=== PATIENT | female | born 1945 | race Caucasian/White ===

== ENCOUNTER 2019-07-01 08:05 | Day surgery (SDC) | payer MEDICARE, OTHER ==
[~2019-07-01 08:05] MED LIST: ALBIPROI INH; ALBU90OI6 INH; ALEN70 PO; AMIT10; AMIT50; AMOX500 PO; ASPI81CH; Aspir 8181 MG PO; Aspir-Trin325 MG; BENZ100A PO; Bactrim Ds Tab1 EACH PO; Bactroban22 GM TOP; CALCAVITDA PO; CARI350 PO; CEPH500 PO; CHOL10002 PO; CLOP75; Cleocin HCl150 MG PO; Clindamycin HC150 MG PO; Crutch1 EACH MISC; DULO60; FLUO20; FLUO20 PO; FURO20; FURO20 PO; FURO40 PO; GABA100; GABA300; GABA300 PO; GABA800 PO; HYDACE5; HYDACE5 PO; HYDMOR2 PO; IBUP600 PO; IBUP800; IBUP800 PO; IPRA.06NI INH; LAMICTAL XR200 MG PO; LAMO100 PO; LEVFLO500 PO; LISI5 PO; LOVA20 PO; MECL25 PO; META400; METO25ER PO; NAPR550 PO; Nitrostat0.4 MG SL; Norco 5-325 Ta1 EACH PO; OMEP20ER PO; OXYACE5T PO; OXYACE7.5T PO; PERCOCET 10/325MG PO; PHENY100ER; PHENY100ER PO; POTASSIUM; POTASSIUM GLUCONATE; POTCHL10ER; POTCHL10ER PO; POTCIT5; POTCIT5 PO; PRODEXEL PO; PROZAC20 MG PO; Percocet 5-3251 EACH PO; Prinivil10 MG PO; QUININE SULFAT324 MG PO; RXNEOPOLHC AS; SILSUL1TC TOP; SULTRIDS PO; TIZA4; VIT1CAPS12; ZADITOR5 ML; Zantac150 MG PO; Zithromax250 MG PO; Zofran Odt8 MG SL; [UNRECOGNIZED DRUG - SUPPLY] MC
--- NOTE | 2019-07-01 10:26 | NUR ---
PT INTO STEP VIA NASIR POST MYELOGRAM CERVICLE. PT AWAKE/ALERT/ORIENTED X4. HOB ELEVATED TO APPROX 30 DEGREES PER ORDER. BASELINE NEURO CHECK COMPLETED. STRENGTH BUE EQUAL. STRENGTH TO BLE EQUAL. DENIES NUMBNESS/TINGLING THAT IS ABNORMAL FROM PREPROCEDURE. BANDAID TO LOWER BACK CDI. WILL CONTINUE TO MONITOR AND DOCUMENT CHANGES FROM BASELINE.
--- NOTE | 2019-07-01 12:00 | NUR ---
Patient States Post-Procedure ride home has been arranged. Patient vitals signs stable and neuro stable. Discharged via wheelchair to private car for ride home.
== END 2019-07-01 12:00 | disposition home or self-care (01) ==
LOC: RAD 08:05
DX: M50.11 Cervical disc disorder with radiculopathy, high cervical region (principal); M47.22 Other spondylosis with radiculopathy, cervical region; E78.5 Hyperlipidemia, unspecified; J44.9 Chronic obstructive pulmonary disease, unspecified; F32.9 Major depressive disorder, single episode, unspecified; Z88.5 Allergy status to narcotic agent; Z88.8 Allergy status to other drugs, medicaments and biological substances
CPT/HCPCS: 62302; 72126; Q9966

== ENCOUNTER 2019-12-10 12:50 | Day surgery (SDC) | payer MEDICARE, OTHER ==
--- NOTE | 2019-12-10 15:07 | NUR ---
SPOKE WITH DR. QURESHI VIA PHONE AND STATED THE PT WAS RECOVERING WELL. DR. QURESHI STATED THE PT COULD BE DISHCHARGED HOME AT THIS TIME.
== END 2019-12-10 22:35 | disposition home or self-care (01) ==
LOC: RAD 12:50
DX: M54.14 Radiculopathy, thoracic region (principal); M54.5 Low back pain; G89.29 Other chronic pain; M54.2 Cervicalgia; M79.669 Pain in unspecified lower leg; R32 Unspecified urinary incontinence; K59.00 Constipation, unspecified; I65.29 Occlusion and stenosis of unspecified carotid artery; M79.7 Fibromyalgia; E78.5 Hyperlipidemia, unspecified; I10 Essential (primary) hypertension; F17.200 Nicotine dependence, unspecified, uncomplicated; Z79.82 Long term (current) use of aspirin; Z86.73 Personal history of transient ischemic attack (TIA), and cerebral infarction without residual deficits; Z91.81 History of falling
CPT/HCPCS: 62303; 72129; Q9966

== ENCOUNTER 2020-01-01 15:01 | Inpatient (IN) | payer OTHER, MEDICARE ==
[~2020-01-01] VITALS: Ht 165.1 cm; Wt 73.4 kg
[~2020-01-01 15:01] MED LIST changes: -METO25ER PO; -VIT1CAPS12
[2020-01-01] MEDS ORDERED: CYCL10 PO (15:22)
[2020-01-01] MEDS ORDERED: LOVA20 PO (15:22)
[2020-01-01] MEDS ORDERED: METO25 PO (15:23)
[2020-01-01 15:49] LABS: BASOPHILS ABSOLUTE AUTO 0.05 K/mm3 (0.00-0.23); BASOPHILS PERCENT AUTO 1 % (0-2); EOSINOPHILS ABSOLUTE AUTO 0.04 K/mm3 (0.00-0.68); EOSINOPHILS PERCENT AUTO 1 % (0-6); Hematocrit 42.6 % (33.0-51.0); Hemoglobin 14.3 g/dL (11.5-16.0); IMMATURE GRAN ABSOLUTE AUTO 0.01 K/mm3 (0.00-0.10); IMMATURE GRAN PERCENT AUTO 0 % (0-1); LYMPHOCYTES ABSOLUTE AUTO 3.56 K/mm3 (0.84-5.20); LYMPHOCYTES PERCENT AUTO 44 % (21-46); MONOCYTES ABSOLUTE AUTO 0.65 K/mm3 (0.16-1.47); MONOCYTES PERCENT AUTO 8 % (4-13); Mean Corpuscular HGB 30.7 pg (26.0-34.0); Mean Corpuscular HGB Conc 33.6 g/dL (31.5-36.5); Mean Corpuscular Volume 91 fL (80-100); Mean Platelet Volume 10.4 fL (9.1-12.4); NEUTROPHILS PERCENT AUTO 46 % (41-73); Platelet Count 266 K/mm3 (150-400); RDW Coefficient Variation 12.9 % (11.7-14.2); RDW Standard Deviation 43.5 fL (35.1-46.3); Red Blood Cell Count 4.66 M/mm3 (3.80-5.20); White Blood Cell Count 8.01 K/mm3 (4.00-11.30)
[2020-01-01 15:59] LABS: Alanine Aminotransfer (ALT/SGP 20 U/L (12-78); Albumin, Blood 3.9 g/dL (3.4-5.0); Albumin/Globulin Ratio 1.2 (0.8-1.8); Alk Phos 78 U/L (50-136); Anion Gap 8 mmol/L (6-16); Aspartate Aminotrans (AST/SGOT 14 U/L (12-37); Bilirubin, Total 0.4 mg/dL (0.1-1.0); Blood Urea Nitrogen 19 mg/dL (8-24); Bun/Creatinine Ratio 25.1 (12.0-20.0); CO2, Blood 26 mmol/L (21-32); Calcium, Blood 9.3 mg/dL (8.5-10.1); Chloride, Blood 105 mmol/L (98-108); Creatinine, Blood 0.76 mg/dL (0.40-1.00); Globulin, Blood 3.3 g/dL (2.2-4.0); Glomerular Filtration Rate >60 (60-); Glucose, Blood 116 mg/dL (70-99); Potassium, Blood 3.9 mmol/L (3.5-5.5); Sodium, Blood 139 mmol/L (136-145); Total Protein, Blood 7.2 g/dL (6.4-8.2)
[2020-01-01] MEDS ORDERED: ASPIR 8181 M1 PO (16:39)
[2020-01-01] MEDS ORDERED: FURO20 PO (16:41)
[2020-01-01] MEDS ORDERED: MULTI VITAMIN1 EACH PO (16:42)
--- NOTE | 2020-01-01 20:54 | NUR ---
RECOVERY ASSESSMENT PT ARRIVED TO ICU FOR RECOVERY WITH RECOVERY NURSE AND DR MARTINEZ. BED SIDE REPORT WAS RECIEVED. PT IS STABLE AT THIS TIME. SHE WAKES EASILY TO VERBAL STIMULI. SHE STATES SHE IS HAVING SOME BACK PAIN, PT HAS A LONG HISTORY OF BACK SURGERIES. PT WAS PLACED ON 2L N/C TO KEEP SATS OVER 92%. NO SOB NOTED AT THIS TIME. PT HAS TWO PERIPHERAL IV'S TO BOTH ARMS PATENT. 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 ELEVATED STUMP ON PILLOW FOR COMFORT. CALL LIGHT REVIEWED WITH PT. WILL CON'T TO MONITOR AND KEEP PT SAFE.
--- NOTE | 2020-01-01 21:50 | NUR ---
TRANSFER TO SURGICAL REPORT GIVEN TO [facility] SURGICAL FLOOR RN. PT IS STABLE UPON TRANSFER. PT DENIES ANY PAIN TO LEG, STATES SHE JUST HAS BACK PAIN AND WILL NEED TO SIT UP. REMOVED PT'S OXYGEN FOR TRANSFER R/T COPD SATS WERE 98% WITH NO SOB NOTED. PT'S IV'S SL UPON TRANSFER. NO S/S OF DISTRESS.
--- NOTE | 2020-01-02 05:35 | NUR ---
SHIFT SUMMARY POD#1. AAOX4. DISCOMFORT CONTROLLED WITH 2 PAIN PILLS Q4H. NO NAUSEA/EMESIS. STUMP SOCK TO LLE WITH SMALL AMOUNT SS DRAINAGE, NEW CHUCKS PLACED UNDER LLE AT 0430 TO ASSESS NEW DRAINAGE. PT RESTING WELL THIS AM. GOOD PO INTAKE. PT DENIES NEED TO URINATE SINCE ARRIVAL TO FLOOR, CONTINUE TO ENCOURAGE UPON PT'S AWAKENING THIS AM. PT ORIENTED TO ROOM + CALL LIGHT USE.
--- NOTE | 2020-01-02 18:08 | NUR ---
SHIFT SUMMARY PATIENT STATES PAIN TOLERABLE WITH PO PAIN MEDS. NO FURTHER SHADOWING OF STUMP SOCK NOTED. DR FIGUEROA IN TO SEE TODAY. HOME MED ORDERS OBTAINED. PATIENT UP TO BSC WITH 1 PERSON ASSIST. PATIENT PLEASANT AND DISPLAYING POSITIVE ATTITUDE RE: JIMMY. TAKING PO. VOIDING. POSSIBLE D/C HOME TOMORROW.
--- NOTE | 2020-01-03 04:10 | NUR ---
SHIFT SUMMARY L BKA, POD1, A/O, VSS, TOLERATING PO, VOIDING WELL, TRANSFERS INDEPENDENTLY W/ 1 PERSON STANDBY ASSIST PER PT REQUEST FOR INDEPENDENCE, PAIN WELL CONTROLLED PER EMAR. MODERATE DRAINAGE IN LIMB SOCK, REINFORCED W/ ADDITIONAL BANDAGES, DR FERGUSON TO PERFORM FIRST DRESSING CHANGE DURING DAY SHIFT. WILL CONTINUE TO MONITOR AND REPORT TO ONCOMING DAY RN.
--- NOTE | 2020-01-03 10:42 | NUR ---
PT OUT OF ROOM IN .
[2020-01-03] MEDS ORDERED: PREG75 PO (13:52)
[2020-01-03] MEDS ORDERED: Percocet 5-3251 EACH PO (13:53)
[2020-01-03] MEDS ORDERED: Mupirocin22 GM TOP (13:56)
--- NOTE | 2020-01-03 14:31 | NUR ---
DISCHARGED PT RECEIVED DELIVERY OF WC TO ROOM. DC'D IVS, CATHETERS INTACT. REVIEWED DC INSTRUCTIONS W/PT AND DAUGHTER; VERBALIZED UNDERSTANDING. PROVIDED SET OF DRESSING CHANGES. PT LEFT UNIT IN WC W/POSSESSIONS, PRESCRIPTIONS AND DC PAPERWORK IN HAND ACCOMPANIED BY DAUGHTER.
[2020-01-06] MEDS ORDERED: LOVASTATIN20 MG PO (18:44)
[2020-01-12] MEDS ORDERED: FERSU300 PO (11:16)
== END 2020-01-03 14:25 | disposition home or self-care (01) | DRG 581 ==
LOC: ER 15:01 → SURS 15:49 → EDBEDREQ 16:18 → SURS 22:06
PROVIDERS: Emergency Medicine; ADMIT Orthopaedic Surgery
PROC: 0LDR0ZZ Extraction of Left Knee Tendon, Open Approach (ICD-10-PCS; 2020-01-01)
PROC: 0Y6J0Z1 Detachment at Left Lower Leg, High, Open Approach (ICD-10-PCS; principal; 2020-01-01 18:30)
DX: S91.302A Unspecified open wound, left foot, initial encounter (principal); S81.012A Laceration without foreign body, left knee, initial encounter; V89.0XXA Person injured in unspecified motor-vehicle accident, nontraffic, initial encounter; Y92.008 Other place in unspecified non-institutional (private) residence as the place of occurrence of the external cause; I10 Essential (primary) hypertension; F17.210 Nicotine dependence, cigarettes, uncomplicated
CPT/HCPCS: 36415; 71045; 73502; 73562-LT; 73590; 73600; 80053; 85025; 86850; 86900; 86901; 88300; 93005; 93010; 96365; 96367; 96375; 96376; 97110; 97162; 99285-25; A9270; J0330; J0690; J1170; J1580; J2250; J2370; J2405; J2704; J3010; U0002

== ENCOUNTER → 2020-02-18 | Outpatient (CLI) | payer MEDICARE, OTHER ==
[~2020-02-18] MED LIST changes: +ASPIR 8181 M1 PO; +CYCL10 PO; +FERSU300 PO; +LOVASTATIN20 MG PO; +METO25 PO; +MULTI VITAMIN1 EACH PO; +Mupirocin22 GM TOP; +PREG75 PO
== END | disposition home or self-care (01) ==
LOC: LAB SHORT 12:50 → LAB UCHC 12:50
DX: L03.119 Cellulitis of unspecified part of limb (principal)
CPT/HCPCS: 87070; 87205

== ENCOUNTER 2020-09-24 02:29 | Emergency (ER) | payer MEDICARE, OTHER ==
[~2020-09-24] VITALS: Ht 172.7 cm; Wt 79.4 kg
[2020-09-24] MEDS ORDERED: CYCL10 PO (03:28)
== END 2020-09-24 03:35 | disposition home or self-care (01) ==
LOC: ER 02:29
DX: S29.012A Strain of muscle and tendon of back wall of thorax, initial encounter (principal); I10 Essential (primary) hypertension; E78.5 Hyperlipidemia, unspecified; F17.200 Nicotine dependence, unspecified, uncomplicated; Z79.82 Long term (current) use of aspirin; Z79.899 Other long term (current) drug therapy; X58.XXXA Exposure to other specified factors, initial encounter
CPT/HCPCS: 96372; 99282-25; A9270; J1885

== ENCOUNTER 2021-05-03 11:38 | Emergency (ER) | payer MEDICARE, OTHER ==
[~2021-05-03] VITALS: Ht 165.1 cm; Wt 72.6 kg
[2021-05-03] MEDS ORDERED: CEPH500 PO (13:34)
== END 2021-05-03 13:43 | disposition home or self-care (01) ==
LOC: ER 11:38
DX: L03.115 Cellulitis of right lower limb (principal); I10 Essential (primary) hypertension; E78.5 Hyperlipidemia, unspecified; G62.9 Polyneuropathy, unspecified; F17.200 Nicotine dependence, unspecified, uncomplicated; Z79.82 Long term (current) use of aspirin; Z79.899 Other long term (current) drug therapy
CPT/HCPCS: 73590; 93971; 99283-25

== ENCOUNTER → 2022-06-14 | Outpatient (CLI) | payer MEDICARE, OTHER ==
[2022-06-14 17:04] LABS: BASOPHILS ABSOLUTE AUTO 0.06 K/mm3 (0.00-0.23); BASOPHILS PERCENT AUTO 1 % (0-2); EOSINOPHILS ABSOLUTE AUTO 0.08 K/mm3 (0.00-0.68); EOSINOPHILS PERCENT AUTO 1 % (0-6); Hematocrit 41.1 % (33.0-51.0); Hemoglobin 13.7 g/dL (11.5-16.0); IMMATURE GRAN ABSOLUTE AUTO 0.01 K/mm3 (0.00-0.10); IMMATURE GRAN PERCENT AUTO 0 % (0-1); LYMPHOCYTES ABSOLUTE AUTO 2.44 K/mm3 (0.84-5.20); LYMPHOCYTES PERCENT AUTO 38 % (21-46); MONOCYTES ABSOLUTE AUTO 0.53 K/mm3 (0.16-1.47); MONOCYTES PERCENT AUTO 8 % (4-13); Mean Corpuscular HGB Conc 33.3 g/dL (31.5-36.5); Mean Corpuscular Volume 93 fL (80-100); Mean Platelet Volume 10.2 fL (9.1-12.4); NEUTROPHILS ABSOLUTE AUTO 3.27 K/mm3 (1.96-9.15); NEUTROPHILS PERCENT AUTO 51 % (41-73); Platelet Count 240 K/mm3 (150-400); RDW Coefficient Variation 13.2 % (11.7-14.2); RDW Standard Deviation 45.2 fL (35.1-46.3); Red Blood Cell Count 4.42 M/mm3 (3.80-5.20); White Blood Cell Count 6.39 K/mm3 (4.00-11.30)
[2022-06-14 18:01] LABS: Albumin, Blood 3.8 g/dL (3.4-5.0); Albumin/Globulin Ratio 1.2 (0.8-1.8); Bilirubin, Total 0.3 mg/dL (0.1-1.0); Bun/Creatinine Ratio 25.5 (12.0-20.0); Calcium, Blood 9.1 mg/dL (8.5-10.1); Creatinine, Blood 0.51 mg/dL (0.40-1.00); Globulin, Blood 3.3 g/dL (2.2-4.0); Potassium, Blood 4.5 mmol/L (3.5-5.5); Thyroid Stimulating Hormone 0.981 uIU/mL (0.360-4.800); Total Protein, Blood 7.1 g/dL (6.4-8.2)
== END | disposition home or self-care (01) ==
LOC: LAB SHORT 14:59
PROVIDERS: Family Medicine
DX: I48.91 Unspecified atrial fibrillation (principal)
CPT/HCPCS: 80053; 84443; 85025

== ENCOUNTER → 2024-02-22 | Outpatient (CLI) | payer MEDICARE, OTHER ==
[2024-02-22 19:17] LABS: BASOPHILS ABSOLUTE AUTO 0.05 K/mm3 (0.00-0.23); BASOPHILS PERCENT AUTO 1 % (0-2); EOSINOPHILS PERCENT AUTO 2 % (0-6); Hematocrit 28.9 % (33.0-51.0); Hemoglobin 7.5 g/dL (11.5-16.0); IMMATURE GRAN ABSOLUTE AUTO 0.01 K/mm3 (0.00-0.10); IMMATURE GRAN PERCENT AUTO 0 % (0-1); LYMPHOCYTES ABSOLUTE AUTO 1.54 K/mm3 (0.84-5.20); LYMPHOCYTES PERCENT AUTO 24 % (21-46); MONOCYTES PERCENT AUTO 8 % (4-13); Mean Corpuscular HGB 15.9 pg (26.0-34.0); Mean Corpuscular Volume 61 fL (80-100); Mean Platelet Volume 9.1 fL (9.1-12.4); NEUTROPHILS ABSOLUTE AUTO 4.36 K/mm3 (1.96-9.15); NEUTROPHILS PERCENT AUTO 66 % (41-73); Platelet Count 553 K/mm3 (150-400); RDW Coefficient Variation 23.3 % (11.7-14.2); RDW Standard Deviation 49.3 fL (35.1-46.3); Red Blood Cell Count 4.71 M/mm3 (3.80-5.20); White Blood Cell Count 6.56 K/mm3 (4.00-11.30)
[2024-02-22 19:44] LABS: Ferritin, Serum 3 ng/mL (8-252); Iron Serum 12 ug/dL (50-170); Percent Saturation 2.9 % (15.0-50.0); Total Iron Binding Capacity 418 ug/dL (250-450); Very Low Density Lipoprot Chol 18 mg/dL (6-32)
[2024-02-22 19:59] LABS: Alanine Aminotransfer (ALT/SGP 21 U/L (12-78); Albumin, Blood 3.3 g/dL (3.4-5.0); Albumin/Globulin Ratio 0.9 (0.8-1.8); Alk Phos 119 U/L (50-136); Anion Gap 11 mmol/L (3-11); Aspartate Aminotrans (AST/SGOT 15 U/L (12-37); Bilirubin, Direct <0.1 mg/dL (0.0-0.3); Bilirubin, Indirect Unable to Calculate mg/dL (0.1-0.7); Bilirubin, Total 0.3 mg/dL (0.1-1.0); Blood Urea Nitrogen 10 mg/dL (8-24); Bun/Creatinine Ratio 15.6 (12.0-20.0); CHOL/HDL RATIO 2.4; CO2, Blood 26 mmol/L (21-32); Calcium, Blood 8.2 mg/dL (8.5-10.1); Chloride, Blood 106 mmol/L (98-108); Cholesterol 119 mg/dL (50-200); Creatinine, Blood 0.64 mg/dL (0.40-1.00); Globulin, Blood 3.5 g/dL (2.2-4.0); Glomerular Filtration Rate 90 (60-); Glucose, Blood 164 mg/dL (70-99); HDL Cholesterol 50 mg/dL (>39); Low Density Lipoprotein Chol 51 mg/dL (0-110); Sodium, Blood 139 mmol/L (136-145); Total Protein, Blood 6.8 g/dL (6.4-8.2); Triglycerides 90 mg/dL (30-160)
== END ==
LOC: LAB SHORT 17:31 → LAB 17:31
PROVIDERS: Nurse Practitioner Family
DX: D50.8 Other iron deficiency anemias (principal); E55.9 Vitamin D deficiency, unspecified; I10 Essential (primary) hypertension; M79.7 Fibromyalgia; R16.0 Hepatomegaly, not elsewhere classified; R60.0 Localized edema
CPT/HCPCS: 80053; 80061; 82248; 82306; 82728; 83540; 83550; 83880; 85025; 85651

== ENCOUNTER 2025-04-27 11:20 | Emergency (ER) | payer MEDICARE, OTHER ==
[~2025-04-27] VITALS: Ht 162.6 cm; Wt 59.0 kg
[2025-04-27 12:10] VITALS: BP 141/105
[2025-04-27] MEDS ORDERED: Triamcinolone A15 GM TOP (15:15)
[2025-04-27] MEDS ORDERED: Voltaren100 GM TOP (15:15)
== END 2025-04-27 15:31 | disposition home or self-care (01) ==
LOC: ER 11:20
DX: M19.012 Primary osteoarthritis, left shoulder (principal); I10 Essential (primary) hypertension; E78.5 Hyperlipidemia, unspecified; M81.0 Age-related osteoporosis without current pathological fracture; F17.200 Nicotine dependence, unspecified, uncomplicated; Z79.82 Long term (current) use of aspirin; Z79.899 Other long term (current) drug therapy; Z59.89 Other problems related to housing and economic circumstances
CPT/HCPCS: 73030; 73060; 99283-25; A9270